=== PATIENT | male | born 1955 | race Caucasian/White ===

== ENCOUNTER 2017-03-22 16:33 | Emergency (ER) | payer BC ==
[2017-03-22 16:39] VITALS: BP 117/97; PULSE 86; TEMP 98; BMI 23.0
--- NOTE | 2017-03-22 16:40 | PDOC ---
Rapid Medical Evaluation Time Seen by Provider: 03/22/17 16:35 Medical Evaluation: Allergies Allergy/AdvReac Type Severity Reaction Status Date / Time No Known Allergies Allergy Verified 03/22/17 16:34 03/22/17 16:36 Pt here with c/o : pain to lower abdominal pain, + nausea, no diarrhea, took pepto bismol 2 days ago now with black stool , + foul odor x 3 days Pt on exam: VSS, pt ordered for: ua, ucx Discharge Disposition - Diagnosis Abdominal pain - Referrals - Patient Instructions - Post Discharge Activity
[2017-03-22 17:00] LABS: URINE APPEARANCE CLEAR; URINE BILIRUBIN NEGATIVE (NEGATIVE); URINE BLOOD 1+ (NEGATIVE); URINE COLOR LT. YELLOW; URINE GLUCOSE (UA) NEGATIVE (NEGATIVE); URINE KETONE NEGATIVE (NEGATIVE); URINE NITRITE NEGATIVE (NEGATIVE); URINE PROTEIN NEGATIVE (NEGATIVE); URINE UROBILINOGEN 0.2 mg/dL (0.2-1.0)
[2017-03-22 21:07] LABS: URINE LEUK ESTERASE Negative (NEGATIVE)
[2017-03-22 21:25] LABS: URINE BACTERIA RARE /hpf (NONE SEEN); URINE MUCUS RARE; URINE RBC <1 /hpf (0-3); URINE WBC 1 /hpf (3-5)
== END 2017-03-22 20:25 | disposition left against medical advice (07) ==
LOC: JER 16:33
DX: R10.30 Lower abdominal pain, unspecified (principal)
CPT/HCPCS: 81003; 81015; 87086; 99281-25